=== PATIENT | female | born 1965 | race Caucasian/White ===

== ENCOUNTER 2023-03-22 14:30 | Emergency (ER) | payer BC, SELFPAY ==
[2023-03-22 14:46] VITALS: BP 147/89
--- NOTE | 2023-03-22 15:24 | ED.GENMED ---
History of Present Illness
<Sharee Patrick PA-C - Last Filed: 03/22/23 20:05>
General
Chief Complaint: Headache
Source: patient
Exam Limitations: none
Time Seen by Provider: 03/22/23 15:24
Nursing documentation reviewed up to this point in time: agreed with
Travel History
Have you had any contact with someone who has COVID-19?: No
Do you have any symptoms of coronavirus? Fever > 100 degrees, chills, cough, shortness of breath, sore throat, loss of taste or smell, muscle aches, or headache?: No
History of Present Illness
History of Present Illness:
This is a 57-year-old female with no past medical history presenting to emergency department today with a headache and facial numbness for the past 2 days. She reports that she normally has some intermittent neck pain but over the past 2 days has
gotten very moderate pain in the back of her neck which radiates to the occipital area. She states that she has soreness and throbbing sensation at baseline and then she will have periods where the pain will get more intense accompanied by
bilateral facial numbness and tingling. She states that she took ibuprofen 1 this occurred and her symptoms subsequently improved but she still does have the pain. Of note, she has been currently treated for a sinus infection for the past 2 weeks
and she believes this may be related. She denies dysarthria, nausea, vomiting, head trauma, history of migraines, photophobia, trouble walking. She has never had anything like this before.
Review of Systems
<Sharee Patrick PA-C - Last Filed: 03/22/23 20:05>
Review of Systems
All Other Systems: ROS reviewed and negative except as documented in HPI and ROS
Phy Exam
<Sharee Patrick PA-C - Last Filed: 03/22/23 20:05>
Physical Exam
Physical Exam:
General: Patient is well-appearing no acute distress.
Skin: Warm and dry, no rashes or lesions
Cardiac: Regular rate
Pulm: Normal respiratory effort
Musculoskeletal: Patient has mild tenderness palpation of the upper trapezius area. Patient has no midline cervical spine tenderness. Patient spontaneously moves cervical spine. Patient has no pain with range of motion of cervical spine.
Neuro: Alert and oriented x 3., Nerves II through XII intact. Strength 5 out of 5 in bilateral upper and lower extremities. Facial sensation intact. Finger to quach, internal nose testing intact.
Course
<Sharee Patrick PA-C - Last Filed: 03/22/23 20:05>
Orders/Labs/Results
Orders:
Orders
03/22/23 15:06
Complete Blood Count/With Diff Urgent
Comprehensive Metabolic Panel Urgent
03/22/23 16:03
CT Head W/o Iv Contrast Urgent
Comment:
Reason For Exam: headache, hx of fall
CT Sinuses W/o Iv Contrast Urgent
Comment:
Reason For Exam: facial pain/numbness, persistent sinusitus
03/22/23 16:23
Electrocardiogram (*1) Urgent
Reason for Study: Other
Other Reason for Exam: numbness/tingling
EKG- Treatment ONCE
Abnormal Lab Results
03/22/23
15:06
RBC 5.90 H 10^6/uL
(4.20-5.40)
MCV 65.6 L fL
(81.0-99.0)
MCH 21.2 L pg
(27.0-31.0)
MCHC 32.3 L g/dL
(33.0-37.0)
MPV 11.1 H fL
(7.4-10.4)
Glucose 132 H mg/dl
(70-99)
03/22/23 15:06
03/22/23 15:06
Vital Signs
Initial and Last Documented VS:
Initial Vital Signs
Temp Pulse Resp BP Pulse Ox
97.9 F 89 18 147/89 99
03/22/23 14:46 03/22/23 14:46 03/22/23 14:46 03/22/23 14:46 03/22/23 14:46
Last Documented Vital Signs
Temp Pulse Resp BP Pulse Ox
97.9 F 89 18 147/89 99
03/22/23 14:46 03/22/23 14:46 03/22/23 14:46 03/22/23 14:46 03/22/23 14:46
<Gabe Brown, DO - Last Filed: 03/22/23 16:05>
Orders/Labs/Results
Orders:
Orders
03/22/23 15:06
Complete Blood Count/With Diff Urgent
Comprehensive Metabolic Panel Urgent
03/22/23 16:03
CT Head W/o Iv Contrast Urgent
Comment:
Reason For Exam: headache, hx of fall
CT Sinuses W/o Iv Contrast Urgent
Comment:
Reason For Exam: facial pain/numbness, persistent sinusitus
03/22/23 16:23
Electrocardiogram (*1) Urgent
Reason for Study: Other
Other Reason for Exam: numbness/tingling
EKG- Treatment ONCE
Abnormal Lab Results
03/22/23
15:06
RBC 5.90 H 10^6/uL
(4.20-5.40)
MCV 65.6 L fL
(81.0-99.0)
MCH 21.2 L pg
(27.0-31.0)
MCHC 32.3 L g/dL
(33.0-37.0)
MPV 11.1 H fL
(7.4-10.4)
Glucose 132 H mg/dl
(70-99)
03/22/23 15:06
03/22/23 15:06
Vital Signs
Initial and Last Documented VS:
Initial Vital Signs
Temp Pulse Resp BP Pulse Ox
97.9 F 89 18 147/89 99
03/22/23 14:46 03/22/23 14:46 03/22/23 14:46 03/22/23 14:46 03/22/23 14:46
Last Documented Vital Signs
Temp Pulse Resp BP Pulse Ox
97.9 F 89 18 147/89 99
03/22/23 14:46 03/22/23 14:46 03/22/23 14:46 03/22/23 14:46 03/22/23 14:46
<Sharee Patrick PA-C - Last Filed: 03/22/23 20:05>
MDM/Problems Addressed
Differential Diagnosis Includes:
Differentials include occipital migraine, tension headache, musculoskeletal sprain/strain, osteoarthritis of the cervical spine
MDM/Problems Addressed:
Headache
Facial numbness
Chronic conditions affecting care:
N/A
Acute Exacerbation and/or Progression of Chronic Illness:
N/A
<MERLINE Chaudhry Last Filed: 03/22/23 20:05>
*Pulse Oximetry
Patient hypoxic: no
*Critical Care Note
Total Time (30-74mins, 75-104mins- exclusive of procedures): Not Applicable
Data Reviewed
Review of Other/Old Records Reveals: Records (No previous records to review other than echocardiogram done in 2012)
Prescriptions/Medications Considered But Not Given:
Considered occipital nerve block however patient reports that her symptoms improved with ibuprofen
Further Testing Considered But Not Given:
n/a
<Sharee Patrick PA-C - Last Filed: 03/22/23 20:05>
Patient Management
Escalation/DeEscalation of care consider admission/obs:
This is a 57-year-old female with no past medical history presenting today with a headache at the base of the occiput and some neck pain. She also has bilateral facial numbness that occurs when her pain becomes the worst. Her neurological exam is
unremarkable, and she is well-appearing. I suspect she is suffering from an occipital migraine or perhaps cervical osteoarthritis. I do not believe she is having ACS or any acute neurovascular event. Her workup in the emergency department is
unremarkable. She states that ibuprofen greatly improved her symptoms, I recommended she continue using this. Advised her to follow-up with her primary care provider. She is stable for discharge.
ED Attending Note
<Sharee Patrick PA-C - Last Filed: 03/22/23 20:05>
-
Portions of this chart may have been created with voice recognition software.� Occasional wrong word or��sound alike� substitutions may have occurred due to the inherent limitations of voice recognition software.
<Gabe Brown DO - Last Filed: 03/22/23 16:05>
ED Attending Note
Patient seen and examined by attending physician: Yes
I performed the substantive portion of visit, reviewed & personally made and approve the management plan that is documented in note by myself or ABDELRAHMAN.: Yes
ED Attending Note:
Seen with MEENA examined independently 57-year-old female recent diagnosis sinus tach treated with Zithromax and 5 days prednisone had bilateral ear pressure some headache, followed up with her PCP had some pain in her right ear touch of fluid and air
giving steroid nasal spray improved her symptoms for the most part today she was reading at her desk felt some bilateral head pressure numbness in her face she was afraid that something serious was going on here she has a nonfocal neurologic exam
clear speech no facial palsy normal finger-nose no electrolyte abnormality
Doubt ACS or acute coronary syndrome, doubt CVA, will check EKG imaging provide reassurance her symptoms improved after ibuprofen
Discharge Plan
Departure
Patient Disposition: Home (Routine Discharge)
Date of Disposition: 03/22/23
Time of Disposition: 18:05
Patient with high blood pressure during this ER visit?: Yes
Condition: Good
Discharge Problem:
Occipital pain, Facial numbness
Instructions: Headache, Adult, Paresthesia (DC), Neck Pain ED, BLOOD PRESSURE
Referrals:
Kin Trevino MD [Family Provider] -
Activity Restrictions/Additional Instructions:
Please take Ibuprofen for pain control.
Please follow up with your primary care provider.
Please return to the emergency department if you experience numbness or tingling on one side of the body, develop the inability to talk, have trouble finding your words, experience an acute worsening of your symptoms, dizziness or lightheadedness,
or any other concerns.
Interventions
Interventions:
*General Assessment Last Done: 03/22/23 18:28
*Nursing Disposition Last Done: 03/22/23 18:28
ED- Neurological Assessment Last Done: 03/22/23 16:00
Discharge Date and Time
Discharge Date/Time: 03/22/23 18:28
[2023-03-22 15:28] LABS: % Basophils 0.4 % (0-2); % Immature Granulocytes 0.5 % (0-0.5); % Lymphocytes 25.3 % (20.5-51.1); % Monocytes 6.9 % (1.7-9.3); % Neutrophils 64.9 % (42.2-75.2); Absolute Eosinophils 0.2 10^3/uL (0-0.7); Absolute Lymphocytes 1.9 10^3/uL (1.2-3.4); Absolute Monocytes 0.5 10^3/uL (0.1-0.6); Absolute Neutrophils 4.9 10^3/uL (1.4-6.5); Hematocrit 38.7 % (37.0-47.0); Hemoglobin 12.5 g/dL (12.0-16.0); Mean Corp Hgb Conc. 32.3 g/dL (33.0-37.0); Mean Corpuscular Hgb 21.2 pg (27.0-31.0); Mean Corpuscular Volume 65.6 fL (81.0-99.0); Mean Platelet Volume 11.1 fL (7.4-10.4); Nucleated Red Blood Cells % 0 %; Platelet Count 236 10^3/uL (130-400); Red Cell Dist. Width 14.3 % (11.5-14.5); White Blood Cell Count 7.6 10^3/uL (4.8-10.8)
[2023-03-22 15:34] LABS: ALT (SGPT) 25 U/L (0-35); AST (SGOT) 23 U/L (14-36); Albumin 4.2 g/dl (3.5-5.0); Alkaline Phosphatase 119 U/L (38-126); Blood Urea Nitrogen 15 mg/dl (7-17); Calcium 9.9 mg/dl (8.4-10.2); Carbon Dioxide 26 mmol/L (22-30); Chloride 100 mmol/L (98-107); Glucose 132 mg/dl (70-99); Potassium 3.7 mmol/L (3.5-5.1); Sodium 135 mmol/L (135-145); Total Bilirubin 0.6 mg/dl (0.2-1.3); Total Protein 6.9 g/dl (6.3-8.2); eGFR > 60.00
== END 2023-03-22 18:28 | disposition home or self-care (01) ==
LOC: EMR 14:30
PROVIDERS: EMERGENCY PHYSICIAN Emergency Medicine; FAMILY PHYSICIAN Family Medicine
DX: R51.9 Headache, unspecified (principal); R20.0 Anesthesia of skin; M54.2 Cervicalgia; R20.2 Paresthesia of skin; J01.90 Acute sinusitis, unspecified; R03.0 Elevated blood-pressure reading, without diagnosis of hypertension; Z88.0 Allergy status to penicillin
CPT/HCPCS: 99284; 70450; 70486; 80053; 85025; 93005